=== PATIENT | female | born 1985 | race Caucasian/White ===

== ENCOUNTER 2022-09-09 21:34 | Inpatient (IN) ==
[2022-09-09] MEDS ORDERED: CARBOPROST TROMETHAMINE 250 MCG/ML AMP IM PRN (21:53)
[2022-09-09] MEDS ORDERED: METHYLERGONOVINE 0.2 MG/1 ML AMP IM PRN (21:53)
[2022-09-09] MEDS ORDERED: TRANEXAMIC ACID 1,000 MG in SODIUM CHLORIDE 0.9% 100 ML IV PRN (21:53)
[2022-09-09] MEDS ORDERED: ONDANSETRON 4 MG/2 ML VIAL IV PRN (21:53)
[2022-09-09] MEDS ORDERED: miSOPROStoL 200 MCG TABLET RECTAL PRN (21:53)
[2022-09-09] MEDS ORDERED: OXYTOCIN/LR 20 UNIT/1,000 ML BAG IV ONE (21:53)
[2022-09-09] MEDS ORDERED: BUTORPHANOL 1 MG/ML VIAL IV PRN (21:56)
[2022-09-09] MEDS ORDERED: MEPERIDINE 50 MG/1 ML VIAL IV PRN (21:56)
[2022-09-09 22:41] LABS: Basophils % 0.3 % (0.0-0.8); Eosinophils # 0.1 10*3/uL (0.0-0.87); Eosinophils % 0.9 % (0.00-10.9); Hematocrit 35.9 VOL% (35.7-47.0); Hemoglobin 11.7 GM/DL (12.0-16.0); Immature Granulocytes % 0.3 %; Immature Granulocytes Absolute 0.02 #; Lymphocytes # 1.7 10*3/uL (1.4-4.0); Lymphocytes % 22.5 % (21.3-54.2); Mean Corpuscular HGB Conc 32.6 GM/DL (32-36); Mean Corpuscular Volume 84.1 FL (87-102); Mean Platelet Volume 10.7 FL (9.6-12.0); Monocytes # 0.5 10*3/uL (0.11-0.8); Monocytes % 6.5 % (1.7-12.7); Neutrophils % 69.5 % (38.7-73.9); Platelet Count 282 T/CUMM (130-400); Red Blood Count 4.27 MC/CUMM (3.8-5.5); White Blood Count 7.7 T/CUMM (4-12)
[2022-09-09] MEDS: LACTATED RINGERS 1,000 ML IV SCH (23:00)
[2022-09-10] MEDS: LABETALOL 100 MG TABLET PO SCH ×2 (09:09→21:19)
[2022-09-10] MEDS ORDERED: BUTORPHANOL 2 MG/ML VIAL IV PRN (17:07)
[2022-09-10] MEDS: LACTATED RINGERS 1,000 ML IV SCH ×2 (17:14→18:02)
[2022-09-10] MEDS ORDERED: FAMOTIDINE 20 MG/2 ML VIAL IV ONE (18:11)
[2022-09-10] MEDS ORDERED: ONDANSETRON 4 MG/2 ML VIAL IV ONE (18:11)
[2022-09-10] MEDS ORDERED: NALOXONE 0.4 MG/ML VIAL IV PRN (18:11)
[2022-09-10] MEDS ORDERED: LACTATED RINGERS 1,000 ML IV ONE (18:11)
[2022-09-10] MEDS ORDERED: ePHEDrine 50 MG/ML VIAL IV PRN (18:11)
[2022-09-10] MEDS ORDERED: CITRIC ACID/SODIUM CITRATE 30 ML UDCUP PO ONE (18:11)
[2022-09-10] MEDS ORDERED: hydrOXYzine HCL 25 MG/1 ML VIAL IM PRN (18:11)
[2022-09-10] MEDS ORDERED: PROMETHAZINE 25 MG/1 ML VIAL IM ONE (18:11)
[2022-09-10] MEDS ORDERED: diphenhydrAMINE 50 MG/1 ML VIAL IV PRN ×2 (18:11)
[2022-09-10] MEDS ORDERED: fentaNYL 2 MCG/ROPIV 0.2% EPID 100 ML EPIDURAL SCH (18:30)
[2022-09-10] MEDS ORDERED: OXYTOCIN/LR 20 UNIT/1,000 ML BAG IV SCH (18:33)
[2022-09-10 20:52] LABS: Cord Arterial Blood HCO3 16.5 MMOL/L
[2022-09-10] MEDS ORDERED: ZALEPLON 5 MG CAPSULE PO PRN (21:00)
[2022-09-10 21:02] LABS: Cord Venous Blood HCO3 17.5 MMOL/L; Cord Venous Blood PCO2 53.1 MMHG
[2022-09-10] MEDS ORDERED: ONDANSETRON 4 MG/2 ML VIAL IV PRN (21:27)
[2022-09-10] MEDS ORDERED: RHO(D) IMMUNE GLOBULIN 300 MCG SYRINGE IM ONE (21:27)
[2022-09-10] MEDS ORDERED: DIPH/TET/ACEL PERT BOOSTER VACCINE 0.5 ML VIAL IM ONE (21:27)
[2022-09-10] MEDS ORDERED: MEASLES/MUMPS/RUBELLA VACCINE 0.5 ML VIAL SUBCUT ONE (21:27)
[2022-09-10] MEDS ORDERED: LANOLIN 50% CREAM 0.3 OZ TUBE TOP PRN (21:27)
[2022-09-10] MEDS ORDERED: OXYTOCIN/LR 20 UNIT/1,000 ML BAG IV ONE (21:27)
[2022-09-10] MEDS ORDERED: BENZOCAINE 20%/MENTHOL 0.5% SPRAY 56 GM CAN TOP PRN (21:27)
[2022-09-10] MEDS ORDERED: BISACODYL 10 MG SUPP RECTAL PRN (21:27)
[2022-09-10] MEDS ORDERED: WITCH HAZEL PADS 100/JAR TOP PRN (21:27)
[2022-09-10] MEDS ORDERED: HYDROCORTISONE 2.5% RECTAL CREAM 30 GM TUBE TOP PRN (21:27)
[2022-09-10] MEDS ORDERED: IBUPROFEN 800 MG TABLET PO PRN (21:27)
[2022-09-10] MEDS ORDERED: oxyCODONE/ACETAMINOPHEN 5-325 MG TABLET PO PRN ×2 (21:27)
[2022-09-10] MEDS ORDERED: ACETAMINOPHEN 325 MG TABLET PO PRN (21:27)
[2022-09-10 22:37] LABS: Hyaline Casts,Urine 1 /LPF (0-3); Mucus,Urine Few /LPF (Occasional); RBC,Urine 24 /HPF (0-4); Squamous Epithelial Cell,Urine Occasional /HPF (0-10)
[2022-09-10 22:39] LABS: Bilirubin,Urine Negative (Negative); Blood, Urine Moderate mg/dL (Negative); Glucose,Urine (UA) Negative (Negative); Ketones,Urine >=160 mg/dL (Negative); Nitrite,Urine Negative (Negative); Protein,Urine Trace mg/dL (Negative); Urine Appearance Clear (Clear); Urine Color Yellow (Yellow); Urine Specific Gravity 1.015 (1.001-1.035); Urine Urobilinogen 0.2 eU/dL (<2.0)
[2022-09-11 05:56] LABS: Basophils % 0.2 % (0.0-0.8); Eosinophils % 0.2 % (0.00-10.9); Hematocrit 33.9 VOL% (35.7-47.0); Hemoglobin 11.1 GM/DL (12.0-16.0); Immature Granulocytes % 0.5 %; Immature Granulocytes Absolute 0.06 #; Lymphocytes # 1.4 10*3/uL (1.4-4.0); Lymphocytes % 11.6 % (21.3-54.2); Mean Corpuscular HGB Conc 32.7 GM/DL (32-36); Mean Corpuscular Volume 85.4 FL (87-102); Mean Platelet Volume 10.6 FL (9.6-12.0); Monocytes % 7.9 % (1.7-12.7); Neutrophils % 79.6 % (38.7-73.9); Platelet Count 218 T/CUMM (130-400); Red Blood Count 3.97 MC/CUMM (3.8-5.5); Red Cell Distribution Width 15.9 % (9.3-17.3); White Blood Count 12.2 T/CUMM (4-12)
[2022-09-11] MEDS: DOCUSATE SODIUM 100 MG CAPSULE PO SCH ×2 (10:50→20:40)
[2022-09-11] MEDS: LABETALOL 100 MG TABLET PO SCH ×2 (10:50→20:43)
[2022-09-12] MEDS: LABETALOL 100 MG TABLET PO SCH (09:55)
[2022-09-12] MEDS: DOCUSATE SODIUM 100 MG CAPSULE PO SCH (09:55)
[2022-09-12 10:41] VITALS: BP 156/71
== END 2022-09-12 11:32 | disposition home or self-care (01) | DRG 807 ==
LOC: N.LDOUT 21:34 → N.LD 21:39 → N.OB 09-10 23:30
PROVIDERS: ADMIT Specialist; ATTEND Specialist